=== PATIENT | female | born 1965 | race Caucasian/White ===

== ENCOUNTER → 2021-12-28 08:46 | Outpatient (BNVA) | payer OTHER, SELFPAY | PROVIDERS: Visit Provider Physician Assistant | DX: S93.402A Sprain of unspecified ligament of left ankle, initial encounter (principal); W22.09XA Striking against other stationary object, initial encounter | CPT/HCPCS: 73630; 99204 ==

== ENCOUNTER → 2023-01-22 12:47 | Outpatient (BNVA) | payer OTHER, SELFPAY | PROVIDERS: Visit Provider Physician Assistant Medical | DX: S67.21XA Crushing injury of right hand, initial encounter (principal); S67.190A Crushing injury of right index finger, initial encounter; W31.9XXA Contact with unspecified machinery, initial encounter | CPT/HCPCS: 29085; 99203 ==

== ENCOUNTER → 2023-01-31 07:52 | Outpatient (BNVA) | payer OTHER, SELFPAY | PROVIDERS: Visit Provider Physician Assistant Medical | DX: S67.21XA Crushing injury of right hand, initial encounter (principal); S67.190A Crushing injury of right index finger, initial encounter; W31.9XXA Contact with unspecified machinery, initial encounter | CPT/HCPCS: 73130; 99214 ==

== ENCOUNTER → 2023-02-11 14:54 | Outpatient (BNVA) | payer OTHER, SELFPAY | PROVIDERS: Visit Provider Physician Assistant Medical | DX: S67.21XD Crushing injury of right hand, subsequent encounter (principal); S67.190D Crushing injury of right index finger, subsequent encounter; S67.192D Crushing injury of right middle finger, subsequent encounter; W31.9XXD Contact with unspecified machinery, subsequent encounter | CPT/HCPCS: 99213 ==

== ENCOUNTER → 2023-02-28 13:02 | Outpatient (BNVA) | payer OTHER, SELFPAY | PROVIDERS: Visit Provider Physician Assistant Medical | DX: S67.190D Crushing injury of right index finger, subsequent encounter (principal); S67.192D Crushing injury of right middle finger, subsequent encounter; W31.9XXD Contact with unspecified machinery, subsequent encounter | CPT/HCPCS: 99213 ==

== ENCOUNTER → 2023-03-19 14:57 | Outpatient (BNVA) | payer OTHER, SELFPAY | PROVIDERS: Visit Provider Physician Assistant Medical | DX: S67.190D Crushing injury of right index finger, subsequent encounter (principal); S67.192D Crushing injury of right middle finger, subsequent encounter; W31.9XXD Contact with unspecified machinery, subsequent encounter | CPT/HCPCS: 99213 ==

== ENCOUNTER → 2023-03-28 08:56 | Outpatient (BNVA) | payer OTHER, SELFPAY | PROVIDERS: Visit Provider Physician Assistant | DX: S63.602A Unspecified sprain of left thumb, initial encounter (principal); X50.3XXA Overexertion from repetitive movements, initial encounter | CPT/HCPCS: 29130; 73140; 99204 ==

== ENCOUNTER → 2023-04-03 10:58 | Outpatient (BNVA) | payer OTHER, SELFPAY | PROVIDERS: Visit Provider Physician Assistant | DX: S63.602A Unspecified sprain of left thumb, initial encounter (principal); X50.3XXA Overexertion from repetitive movements, initial encounter | CPT/HCPCS: 99213 ==